=== PATIENT | female | born 1990 | race Two or more races ===

== ENCOUNTER 2023-01-02 05:31 | Inpatient (IN) | payer OTHER ==
[2023-01-02] MEDS ORDERED: Diphenoxylate HCl/Atropine Tablet PO PRN (06:04)
[2023-01-02] MEDS ORDERED: Carboprost 250 MCG/ML AMP IM PRN (06:04)
[2023-01-02] MEDS ORDERED: Ibuprofen 800 MG TAB PO PRN (06:04)
[2023-01-02] MEDS ORDERED: hydrALAZINE 20 MG/ML VIAL SLOW IVP PRN ×2 (06:04→20:18)
[2023-01-02] MEDS ORDERED: Ondansetron PF 4 MG/2 ML Vial IVP PRN ×2 (06:04→13:31)
[2023-01-02] MEDS ORDERED: Misoprostol 200 MCG TAB PR PRN (06:04)
[2023-01-02] MEDS ORDERED: HYDROcodone/Acetaminophen 5/325 mg Tablet PO PRN (06:04)
[2023-01-02] MEDS ORDERED: NS w/ Oxytocin 30 units 500 ML IV SCH ×2 (06:04)
[2023-01-02] MEDS ORDERED: Methylergonovine 0.2 MG/ML VIAL IM PRN (06:04)
[2023-01-02] MEDS ORDERED: fentaNYL 50 mcg/mL 1 mL Vial SLOW IVP PRN (06:04)
[2023-01-02] MEDS ORDERED: Acetaminophen 500 MG TAB PO PRN (06:04)
[2023-01-02] MEDS ORDERED: Zolpidem Tartrate 5 MG TAB PO PRN (06:04)
[2023-01-02] MEDS ORDERED: Promethazine HCl 25 MG/ML VIAL IM PRN ×2 (06:04→13:31)
[2023-01-02] MEDS ORDERED: Lidocaine 1% (PF) 30 ML VIAL SC PRN (06:04)
[2023-01-02 06:06] VITALS: BMI 23.6
[2023-01-02 06:29] LABS: Hematocrit 35.4 % (34.9-44.5); Hemoglobin 11.8 g/dL (12.0-15.5); Mean Corpuscular HGB CONC 33.3 g/dL (32.0-36.0); Mean Corpuscular Hemoglobin 28.7 pg (27.0-33.0); Mean Corpuscular Volume 86.1 fl (81.6-98.3); Mean Platelet Volume 11.6 fl (7.4-10.4); Platelet Count 156 10x3/uL (150-450); RBC Distribution Width 15.8 % (11.5-14.5); Red Blood Cell (RBC) Count 4.11 10x6/uL (3.90-5.03); White Blood Cell (WBC) Count 7.5 10x3/uL (3.5-10.5)
[2023-01-02 07:34] LABS: HBSAg Index 0.18 S/CO (0-0.99); Hep B Surf Ag - L&D Non-Reactive S/CO (NonReactive)
[2023-01-02 07:36] LABS: Syphilis Antibody Nonreactive (Nonreactive); Syphilis Antibody Index 0.03 S/CO (<1.00 Non-Reactive)
[2023-01-02] MEDS ORDERED: Bupivacaine 0.25% HCL 30 ML VIAL ONE (08:00)
[2023-01-02] MEDS: Lactated Ringer's 1,000 ML IV SCH ×2 (08:46→17:20)
[2023-01-02] MEDS ORDERED: fentaNYL/Ropivacaine Epidural 100 ML ONE (13:06)
[2023-01-02] MEDS ORDERED: Lactated Ringer's 500 ML IV PRN (13:31)
[2023-01-02] MEDS ORDERED: Moisturizing Cream (Eucerin) 113 GM JAR TOP PRN (13:31)
[2023-01-02] MEDS ORDERED: Naloxone HCl 0.4 mg/ml Vial IVP PRN ×2 (13:31)
[2023-01-02] MEDS ORDERED: Acetaminophen 325 MG TAB PO PRN (13:31)
[2023-01-02] MEDS ORDERED: diphenhydrAMINE 50 MG/ML VIAL IVP PRN (13:31)
[2023-01-02] MEDS ORDERED: ePHEDrine Sulfate 50 MG/10 ML VIAL SLOW IVP PRN (13:31)
[2023-01-02] MEDS ORDERED: fentaNYL 2 mcg/Ropivacaine 0.2% Epidural 100 ML CADD EPIDURAL SCH (13:45)
[2023-01-02] MEDS ORDERED: Communication Order-Pharmacy FS SCH (13:45)
[2023-01-02] MEDS ORDERED: Bisacodyl 10 MG SUPP PR PRN (20:18)
[2023-01-02] MEDS ORDERED: Lanolin Ointment 7 GM TUBE TOP PRN (20:18)
[2023-01-02] MEDS ORDERED: Milk Of Magnesia 30 ML UDCUP PO PRN (20:18)
[2023-01-02] MEDS ORDERED: Boostrix 0.5 ML (Tdap) VIAL (>/=7 yrs of age) IM ONE (20:18)
[2023-01-02] MEDS: Docusate 100 MG CAP PO SCH (22:52)
[2023-01-02] MEDS: Ibuprofen 800 MG TAB PO SCH (22:53)
[2023-01-03] MEDS: Ibuprofen 800 MG TAB PO SCH ×3 (05:43→22:01)
[2023-01-03] MEDS: Ferrous Sulfate 325 MG TAB PO SCH ×2 (09:39→19:07)
[2023-01-03] MEDS: Docusate 100 MG CAP PO SCH ×2 (09:44→20:45)
[2023-01-03] MEDS: Prenatal Vitamin 1 TAB PO SCH (09:44)
[2023-01-04] MEDS: Ibuprofen 800 MG TAB PO SCH ×2 (05:25→13:09)
[2023-01-04] MEDS: Prenatal Vitamin 1 TAB PO SCH (08:08)
[2023-01-04] MEDS: Docusate 100 MG CAP PO SCH (08:08)
[2023-01-04] MEDS: Ferrous Sulfate 325 MG TAB PO SCH (08:09)
[2023-01-04 16:16] VITALS: BP 102/55; TEMP 98
== END 2023-01-04 15:15 | disposition home or self-care (01) | DRG 807 ==
LOC: CSHLD 05:31 → CSHPP 20:50
PROVIDERS: ADMIT Student in an Organized Health Care Education/Training Program; ATTEND Student in an Organized Health Care Education/Training Program
PROC: 10E0XZZ Delivery of Products of Conception, External Approach (ICD-10-PCS; principal; 2023-01-02)
DX: O32.8XX0 Maternal care for other malpresentation of fetus, not applicable or unspecified (principal); Z37.0 Single live birth; Z3A.39 39 weeks gestation of pregnancy
CPT/HCPCS: 36415; 51702; 85027; 86780; 86850; 86900; 86901; 87340; J2590; J7120; S0020